=== PATIENT | male | born 2000 | race Caucasian/White ===

== ENCOUNTER 2021-09-07 18:24 | Emergency (ER) | payer OTHER ==
[~2021-09-07] VITALS: Ht 180.3 cm; Wt 95.3 kg
[2021-09-07 18:30] VITALS: BP 135/77
[2021-09-07] MEDS ORDERED: ALUMINUM HYD/MAG/SIMETHICONE 30 ML, DICYCLOMINE HCL LIQUID 20 MG, LIDOCAINE VISCOUS 2% ... PO ONE ×3 (18:50)
[2021-09-07] MEDS ORDERED: ONDANSETRON 4 MG ODT PO ONE (18:50)
[2021-09-07] MEDS ORDERED: FAMOTIDINE 20 MG TAB PO ONE (18:50)
--- NOTE | 2021-09-07 18:57 | NUR ---
21 y/o male BIB self due to upper abdominal pain. Patient also states he has nausea, nose bleeds, SOB and headache. Per patient he experienced an episode of light headedness/dizziness yesterday and this AM. Patient states " he thinks he might be allergic to cherries." Medical History: Denies NKA
--- NOTE | 2021-09-07 18:57 | NUR ---
Dr. Woods at bedside evaluating patient.
[2021-09-07] MEDS ORDERED: ALUMINUM HYD/MAG/SIMETHICONE 30 ML UDC ONE (19:17)
--- NOTE | 2021-09-07 19:17 | NUR ---
Pt report given to LACHELLE Becerra. Transfer of care at this time.
[2021-09-07] MEDS ORDERED: DICYCLOMINE HCL LIQUID 10 MG/5 ML UDC ONE (19:18)
[2021-09-07 19:19] LABS: BASOPHILS % (AUTO) 0.5 % (0.0-2.0); EOSINOPHILS # (AUTO) 0.2 K/uL (0-0.4); EOSINOPHILS % (AUTO) 4.1 % (0.0-4.0); HEMATOCRIT 44.1 % (36-52); HEMOGLOBIN 15.5 g/dL (12.0-18.0); LYMPHOCYTES # (AUTO) 2.6 K/uL (2.0-11.5); LYMPHOCYTES % (AUTO) 47.4 % (20.5-51.1); MEAN CORPUSCULAR HEMOGLOBIN 30 pg (27-31); MEAN CORPUSCULAR HGB CONC 35 g/dL (33-37); MEAN CORPUSCULAR VOLUME 86.6 fL (80-94); MONOCYTES # (AUTO) 0.5 K/uL (0.8-1.0); MONOCYTES % (AUTO) 8.4 % (1.7-9.3); NEUTROPHILS # (AUTO) 2.1 K/uL (1.8-7.7); NEUTROPHILS % (AUTO) 39.6 % (42.2-75.2); PLATELET COUNT (AUTO) 282 K/uL (140-450); RED CELL DISTRIBUTION WIDTH 14.1 % (11.6-13.7); WHITE BLOOD COUNT (AUTO) 5.4 K/uL (4.5-11.0)
[2021-09-07 19:36] LABS: APPEARANCE,URINE CLEAR (CLEAR); BILIRUBIN,URINE NEGATIVE (NEGATIVE); BLOOD, URINE NEGATIVE (NEGATIVE); COLOR,URINE YELLOW (YELLOW); LEUKOCYTE ESTERASE ,URINE NEGATIVE (NEGATIVE); NITRITE, URINE NEGATIVE (NEGATIVE); UGLUCOSE NEGATIVE (NEGATIVE)
[2021-09-07 19:36] LABS: CARBON DIOXIDE 27.1 mmol/L (21-32); POTASSIUM 4.1 mmol/L (3.5-5.1)
[2021-09-07 19:41] LABS: ALBUMIN 4.8 g/dL (3.4-5.0); TOTAL BILIRUBIN 0.5 mg/dL (0.0-1.0)
--- NOTE | 2021-09-07 20:04 | NUR ---
Dr. Woods examining patient.
[2021-09-07] MEDS ORDERED: PANT40EC PO (20:08)
[2021-09-07] MEDS ORDERED: ONDA-188 PO (20:08)
[2021-09-07] MEDS ORDERED: BISM262C52 PO (20:08)
[2021-09-07 20:18] VITALS: BP 135/77
--- NOTE | 2021-09-07 20:18 | NUR ---
Patient discharged with v/s stable. Written and verbal after care instructions given and explained. Patient verbalized understanding. Ambulatory with steady gait. All questions addressed prior to discharge. Advised to follow up with PMD.
== END 2021-09-07 20:18 | disposition home or self-care (01) ==
LOC: MED 18:24
DX: K21.9 Gastro-esophageal reflux disease without esophagitis (principal); G44.209 Tension-type headache, unspecified, not intractable; I10 Essential (primary) hypertension; F41.9 Anxiety disorder, unspecified; F17.200 Nicotine dependence, unspecified, uncomplicated; F12.90 Cannabis use, unspecified, uncomplicated; Z79.899 Other long term (current) drug therapy
CPT/HCPCS: 36415; 80053; 81003; 83690; 85025; 99284; Q0162

== ENCOUNTER 2022-03-17 04:37 | Emergency (ER) | payer OTHER ==
[~2022-03-17] VITALS: Ht 180.3 cm; Wt 95.3 kg
[~2022-03-17 04:37] MED LIST: BISM262C52 PO; ONDA-188 PO; PANT40EC PO
[2022-03-17 04:40] VITALS: BP 146/92
--- NOTE | 2022-03-17 04:44 | NUR ---
Dr. Martinez examining patient.
[2022-03-17] MEDS ORDERED: PENICILLIN G BENZATHINE L-A 1.2 MU/2 ML SYR IM ONE (04:45)
[2022-03-17] MEDS ORDERED: DEXAMETHASONE 10 MG/ML VIAL IM ONE (04:45)
[2022-03-17] MEDS ORDERED: KETOROLAC 60 MG/2 ML VIAL IM ONE ×2 (04:45→04:51)
[2022-03-17] MEDS ORDERED: PRED15SY34 PO (04:54)
[2022-03-17] MEDS ORDERED: AMOX75PD47 PO (04:54)
[2022-03-17] MEDS ORDERED: IBUP-2886 PO (04:54)
[2022-03-17 05:29] VITALS: BP 135/85
--- NOTE | 2022-03-17 05:29 | NUR ---
Patient discharged with v/s stable. Written and verbal after care instructions given and explained. Patient alert, oriented and verbalized understanding of instructions. Ambulatory with steady gait. All questions addressed prior to discharge. ID band removed. Patient advised to follow up with PMD. Rx of Ibuprofen, Prelone and Augmentin given. Patient educated on indication of medication including possible reaction and side effects. Opportunity to ask questions provided and answered.
== END 2022-03-17 05:29 | disposition home or self-care (01) ==
LOC: MED 04:37
DX: J02.9 Acute pharyngitis, unspecified (principal); K08.89 Other specified disorders of teeth and supporting structures
CPT/HCPCS: 96372; 99284; J0561; J1100; J1885

== ENCOUNTER 2023-05-07 09:54 | Emergency (ER) | payer OTHER ==
[~2023-05-07] VITALS: Ht 175.3 cm; Wt 92.1 kg
[~2023-05-07 09:54] MED LIST changes: +AMOX75PD47 PO; +IBUP-2886 PO; +PRED15SO54 PO
[2023-05-07 10:16] VITALS: BP 126/89; PULSE 53; RESP 18; TEMP 98; O2SAT 98
[2023-05-07] MEDS ORDERED: KETOROLAC 30 MG/ML VIAL IM ONE (10:30)
[2023-05-07] MEDS ORDERED: IBUP-2213 PO (11:11)
[2023-05-07] MEDS ORDERED: DICL100G32 TP (11:11)
[2023-05-07] MEDS ORDERED: CYCL-711 PO (11:11)
[2023-05-07 11:42] VITALS: BP 126/89; PULSE 53; RESP 18; TEMP 98; O2SAT 98
== END 2023-05-07 11:43 | disposition home or self-care (01) ==
LOC: MED 09:54
DX: S16.1XXA Strain of muscle, fascia and tendon at neck level, initial encounter (principal); Z79.899 Other long term (current) drug therapy; Z79.1 Long term (current) use of non-steroidal anti-inflammatories (NSAID); Z79.2 Long term (current) use of antibiotics; V89.2XXA Person injured in unspecified motor-vehicle accident, traffic, initial encounter; Y93.89 Activity, other specified; Y92.410 Unspecified street and highway as the place of occurrence of the external cause; Y99.8 Other external cause status
CPT/HCPCS: 72040; 96372; 99283; J1885